=== PATIENT | male | born 1975 | race Caucasian/White ===

== ENCOUNTER 2017-06-15 12:00 | Emergency (ER) | payer MEDICAID ==
[2017-06-15 12:23] VITALS: BP 128/74; PULSE 70; RESP 16; TEMP 98; O2SAT 100
--- NOTE | 2017-06-15 12:36 | ED PDOC ---
Upper Extremity Pain/Injury Time Seen by Provider: 06/15/17 12:15 Chief Complaint (Nursing): Abnormal Skin Integrity Chief Complaint (Provider): Right finger injury History Per: Patient History/Exam Limitations: no limitations Onset/Duration Of Symptoms: Hrs Additional Complaint(s): Patient is a 41 y/o male with no significant past medical history presenting to the emergency department for a right finger injury sustained at 9:30 p.m. yesterday. Reports that he sustained a cut to his right middle finger while trying to open a can. No active bleeding noted at time of arrival. Denies fever , chills, or other complaints. Tetanus shot is not up to date. PCP: Dr. Darian Avendaño Past Medical History Reviewed: Historical Data, Nursing Documentation, Vital Signs Vital Signs: Last Vital Signs Temp 98.0 F 06/15/17 12:22 Pulse 70 06/15/17 12:22 Resp 16 06/15/17 12:22 BP 128/74 06/15/17 12:22 Pulse Ox 100 06/15/17 12:22 - Family History Family History: States: No Known Family Hx - Home Medications Home Medications: Ambulatory Orders Medication Instructions Recorded Chlorpheniramine Polistirex/ 5 ml PO Q12 #80 ml 06/21/14 [Tussionex Pennkinetic 8 mg/5 ml-10 mg/5 ml 5 ] Guaifenesin/Pseudoephedrne HCl 1 tab PO DAILY PRN #30 ter 06/21/14 [Mucinex D 600 mg-60 mg] Cephalexin [Keflex] 500 mg PO TID #15 capsule 06/15/17 - Allergies Allergies/Adverse Reactions: Allergies Allergy/AdvReac Type Severity Reaction Status Date / Time No Known Allergies Allergy Unverified 06/21/14 17:40 Review of Systems ROS Statement: Except As Marked, All Systems Reviewed And Found Negative Constitutional: Negative for: Fever, Chills Skin: Positive for: Other (Cut on right middle finger with no active bleeding) Physical Exam - Reviewed Nursing Documentation Reviewed: Yes Vital Signs Reviewed: Yes - Physical Exam Appears: Positive for: Well, Non-toxic, No Acute Distress Head Exam: Positive for: ATRAUMATIC, NORMAL INSPECTION, NORMOCEPHALIC Skin: Positive for: Normal Color, Warm, Dry Eye Exam: Positive for: Normal appearance Neck: Positive for: Normal Cardiovascular/Chest: Positive for: Regular Rate, Rhythm Respiratory: Negative for: Accessory Muscle Use, Respiratory Distress Extremity: Positive for: Normal ROM, Other (1 cm laceration on right 3rd digit of hand) Neurologic/Psych: Positive for: Alert, Oriented (x3) - ECG O2 Sat by Pulse Oximetry: 100 (RA) Pulse Ox Interpretation: Normal Medical Decision Making Medical Decision Making: Time: 12:20 Initial impression: Right finger laceration Initial plan: Tetanus shot 0.5 mL IM 12:30 Consent received for laceration repair. Cleaned wound and applied a Steri- Strip. Patient tolerated procedure. 12:40 Tetanus shot given without incident. 12:45 Patient is stable for discharge. Keflex prescribed. Patient was instructed to follow up with PCP or ED in two days for wound check and to return if symptoms worsen. ~ Scribe Attestation: Documented by Debbie Javed, acting as a scribe for МАРИЯ Flores. Provider Scribe Attestation: All medical record entries made by the Scribe were at my direction and personally dictated by me. I have reviewed the chart and agree that the record accurately reflects my personal performance of the history, physical exam, medical decision making, and the department course for this patient. I have also personally directed, reviewed, and agree with the discharge instructions and disposition. Disposition - Clinical Impression Clinical Impression: Finger laceration - Patient ED Disposition Is Patient to be Admitted: No Doctor Will See Patient In The: Office Counseled Patient/Family Regarding: Diagnosis, Need For Followup, Rx Given - Disposition Referrals: [facility] [Outside] Disposition: Routine/Home Disposition Time: 12:30 Condition: STABLE Additional Instructions: f/u with pmd or ED in 2 days for wound check Prescriptions: Cephalexin [Keflex] 500 mg PO TID #15 capsule Instructions: Laceration Without Closure (ED) Forms: [employer] (Faroese)
== END 2017-06-15 12:57 | disposition home or self-care (01) ==
LOC: H.ER 12:00
DX: S61.211A Laceration without foreign body of left index finger without damage to nail, initial encounter (principal); W26.8XXA Contact with other sharp object(s), not elsewhere classified, initial encounter; Y92.89 Other specified places as the place of occurrence of the external cause

== ENCOUNTER 2018-01-11 20:48 | Emergency (ER) | payer MEDICAID ==
[2018-01-11 20:59] VITALS: O2SAT 99
[2018-01-11] MEDS ORDERED: Tmp-Smz 800 mg-160 mg DS Tab PO STA (22:18)
[2018-01-11] MEDS ORDERED: Tmp-Smz 800 mg-160 mg DS Tab ONE (22:41)
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
[2018-01-12 01:13] VITALS: BP 136/84; PULSE 84; RESP 17; TEMP 98.1
== END 2018-01-12 00:10 | disposition home or self-care (01) ==
LOC: H.ER 20:48
DX: L02.419 Cutaneous abscess of limb, unspecified (principal)